=== PATIENT | male | born 1990 | race Caucasian/White ===

== ENCOUNTER 2020-10-14 03:48 | Inpatient (IN) | payer MEDICAID, SELFPAY ==
[2020-10-14 03:48] VITALS: BP 140/90; PULSE 77; RESP 18; TEMP 36.6; O2SAT 95
[2020-10-14 03:50] VITALS: BMI 28.1
[2020-10-14 06:00] VITALS: BP 140/90; PULSE 77; RESP 18; TEMP 36.6
[2020-10-14 14:00] VITALS: BP 140/90; PULSE 77; RESP 18; TEMP 36.6
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
[2020-10-14] MEDS: nicotine 2 mg Gum BUCCAL (17:11)
[2020-10-14 18:19] VITALS: BP 128/76; PULSE 84; RESP 16; TEMP 37; O2SAT 96
[2020-10-14] MEDS: paliperidone ER 6 mg Tablet PO (22:49)
[2020-10-15 05:19] VITALS: BMI 28.1
[2020-10-15 06:00] VITALS: BP 123/72; RESP 16; TEMP 36.9
[2020-10-15] MEDS: nicotine 2 mg Gum BUCCAL (07:22)
[2020-10-15] MEDS: paliperidone ER 6 mg Tablet PO (08:24)
[2020-10-15 14:05] VITALS: BP 130/73; PULSE 93; RESP 18; TEMP 37.2; O2SAT 96
--- NOTE | 2020-10-15 17:32 | P.PN_ITS ---
Subjective NPU Subjective: Interval history: Teddy presents today reporting improvement overall; Endorsing less depression anxiety and irritability. Still with focus on female patient on the other side. We also with interest in discharge. Said he is functioning well on Invega. Discussed the possibility discharge in morning. Reported significant improvement in his face and teeth. Mental Status Exam MSE Comments: This is a overweight versus obese white male with a full cruz and hospital scrubs with adequate grooming and adequate eye contact. No abnormal movements. Cooperative with exam in no acute distress. Speech was more normal rate normal volume. Mood described as better, affect congruent. Thought process organized. Thought content: Patient denied homicidal ideation or suicidal ideation, there were no delusions reported and none noted and continue to focus on the other client, he denied auditory or visual hallucinations. Attention and concentration appear intact and memory appeared limited but somewhat reliable but none were formally tested. He is alert and oriented x3. Insight and judgment are limited, impulse control is limited. Vitals/I&O/Wt Last Vital Signs Temp 98.3 F 10/15/20 21:49 Pulse 83 10/15/20 21:49 Resp 15 10/15/20 21:49 BP 121/71 10/15/20 21:49 Pulse Ox 95 10/15/20 21:49 10/15/20 10/15/20 10/16/20 14:59 22:59 06:59 Intake Total 826 / 826 708 / 1534 Balance 826 / 826 708 / 1534 Weight last 48 hrs Weight 88.904 kg A&P Additional A&P Information (1) Methamphetamine dependence: (2) History of psychosis: (3) Suicidal thoughts: (4) Depression with anxiety: Additional A&P Information This is a 30-year-old white male with a long history of mental health issues, inpatient hospitalizations active drug use and legal problems who presents with suicidal thoughts, off of his medication as a limited historian but open to restarting medication. 1. Continue current medication. 2. Continue every 15 minute checks for safety. 3. Encourage individual, group and milieu therapies. 4. Encourage sober living treatment after discharge at the highest level of care to which he is willing to commit. 5. We will get records from the [facility] to get some insight into his presentations. Involuntary Hold Information 96 Hour Hold: 96 Hour Involuntary Admission: No Attestations NPU Medical Necessity Statement*: Inpatient hospitalization is medically necessary and the clinically appropriate intervention at this time. We will monitor medications and make changes as indicated. Likely length of stay 1-3 days. Coding Level of Care Code Acute Data Base Design Analyst for Mouna Armstrong
[2020-10-15 21:49] VITALS: BP 121/71; PULSE 83; RESP 15; TEMP 36.8; O2SAT 95
[2020-10-16 06:00] VITALS: BP 124/71; PULSE 85; RESP 18; TEMP 37.1; O2SAT 97
[2020-10-16] MEDS: paliperidone ER 6 mg Tablet PO (08:16)
[2020-10-16 14:00] VITALS: BP 126/74; PULSE 92; RESP 17; TEMP 37.4; O2SAT 94
[2020-10-16] MEDS: nicotine 2 mg Gum BUCCAL (14:02)
--- NOTE | 2020-10-16 16:39 | P.DS_ITS ---
Diagnoses at Discharge Discharge Diagnosis (1) Methamphetamine dependence: Status: Acute (2) History of psychosis: Status: Acute (3) Suicidal thoughts: Status: Resolved (4) Depression with anxiety: Status: Acute Reason for Visit Reason for Visit: SI Brief History: History of Present Illness socorro angulo is a 30 year old male who presented to the outside hospital with concerns for oral pain. They treated his oral infection and he identified suicidal ideation and depression and anxiety. He was transferred to [facility] and admitted to the neuropsychiatric unit for definitive treatment of those issues. He presents today reporting that his swelling and face pain have decreased but he is continuing to have suicidal ideation. He reports that he has had at least 10 psychiatric inpatient stays last one was at the [facility] in [place]. He reports that he was started on Invega which was very effective, however he did not refill the prescription nor did he go to aftercare that have been arranged. Adherence to aftercare has seemed to be an issue at the denies significant history of follow-up. He reports having been on many medications in his life and that the Invega was very helpful. He was not able to really articulate why he was given an antipsychotic. But he did give permission for us to get his records from the [facility] to get a better understanding of what was going on however staff have noted odd behavior, he endorsed being socially awkward and asked about testing for autism there have been concerns for sexually inappropriate behavior. And concerns for limited boundary respect. He reports multiple intersections with the law but was not forthright with why he has had so many run-ins with them. He smokes cigarettes, drinks alcohol regularly, reports marijuana but not daily, endorses difficulties with methamphetamine, reports of possible rehab in the past but did not report any DUIs. We discussed the risk benefits and alternatives of starting Invega and he understood and agreed to proceed as documented in this note. He induced parasuicidal phenomena but did not report jaleesa suicide attempts. He did make a concerning comment about a patient that he recognized on the other side who also identified recognizing him saying that he wanted to be discharged at the same time as her so he gave her a cigarette and a really big kiss. Psychiatric history: As above. Substance abuse history: As above. Developmental history: There were no problems with the , or delivery, learned to walk and talk and met developmental milestones on time, and denies need for speech therapy, learning support, emotional support or special education classes. Family history: He denies mental health issues in his family, endorses some addiction issues in his family, but denied known suicide attempts or completions. Psychosocial history: He reports being 1 of 8 or 9 children. He reports a good childhood without emotional, physical or sexual abuse. He reports he graduated from high school. He endorsed being heterosexual with his longest relationship being a year or 2. He has never been , he reports having 1 child, never been in the , and endorsed a nontraditional methodist belief system. 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 He currently says he has a stable place to leave when discharged. Legal history: He reports at least 30 times in shelter longest time being 6 months. Medical history: He denied any additional medical issues outside of his significant dental caries and infections. Hospital Course Hospital Course On the unit he slowly acclimated to the individual, group and milieu therapies provided. He allowed us to restart his Invega 6 mg p.o. daily with modest improvement. He was able to contract for safety prior to discharge. At the outside hospital, patient had routine laboratory studies which were within normal limits except for few outliers. Additionally there was a general medical evaluation which was also within normal limits and revealed no new acute processes. Discharge Summary: At the time of discharge, lethality was denied and psychosis was resolving. Mood and anxiety were well managed. Patient endorsed a plan to avoid all drugs of abuse and follow-up with the aftercare recommendations of the treatment team. Patient was evaluated and deemed to be absent credible lethality, and had achieved the maximum benefit from an inpatient hospitalization, so was discharged. Involuntary Hold Information 96 Hour Hold: 96 Hour Involuntary Admission: No Mental Status Exam MSE Comments: This is a overweight versus obese white male with a full cruz and hospital scrubs with adequate grooming and adequate eye contact. No abnormal movements. Cooperative with exam in no acute distress. Speech was more normal rate normal volume. Mood described as better, affect congruent. Thought process organized. Thought content: Patient denied homicidal ideation or suicidal ideation, there were no delusions reported and none noted and continue to focus on the other client, he denied auditory or visual hallucinations. Attention and concentration appear intact and memory appeared limited but somewhat reliable but none were formally tested. He is alert and oriented x3. Insight and judgment are limited, impulse control is limited. Discharge Data Vitals: Last Vital Signs Temp 99.3 F 10/16/20 14:00 Pulse 92 10/16/20 14:00 Resp 17 10/16/20 14:00 BP 126/74 10/16/20 14:00 Pulse Ox 94 10/16/20 14:00 Discharge Plan Discharge Patient Disposition: Home Condition: Stable Prescriptions: New paliperidone 6 mg Tablet Extended Release 24hr 6 mg PO DAILY 30 Days Qty: 30 RF: 1 Continued amoxicillin-pot clavulanate 875-125 mg Tablet 1 tab PO Q12H RF: 0 Discharge Orders: Discharge Order (Routine); Ordered 10/16/20 Ordered By: Jarocho Cervantes Referrals: [facility] [Outside] (Walk-in Friday through Friday 8am to 4pm for initial assessment.) Discharge Diet: Regular Discharge Activity: Resume usual activity Patient Instructions: Paliperidone (By mouth), Opioid Safety Discharge Attestations NPU Time Spent in Discharge Care*: less than 30 min Specific Discharge Activities: Specific discharge activities: educating patient, discussing with returned case inspector/social workers/dc planners, documenting/other paperwork and evaluating patient/reviewing data Coding Level of Care Code Acute Chg FW DC note Diagnoses Methamphetamine dependence F15.20 History of psychosis Z86.59 Suicidal thoughts R45.851 Depression with anxiety F41.8
[2020-10-16 16:50] VITALS: BP 126/74; PULSE 92; RESP 17; TEMP 37.4; O2SAT 94
== END 2020-10-16 17:23 | disposition home or self-care (01) | DRG 880 ==
PROVIDERS: Admitting Provider Psychiatry & Neurology Psychiatry; Visit Provider Psychiatry & Neurology Psychiatry
DX: F41.8 Other specified anxiety disorders (principal); R45.851 Suicidal ideations; F15.280 Other stimulant dependence with stimulant-induced anxiety disorder; F17.210 Nicotine dependence, cigarettes, uncomplicated; K02.9 Dental caries, unspecified; Z86.59 Personal history of other mental and behavioral disorders; Z65.3 Problems related to other legal circumstances; Z81.4 Family history of other substance abuse and dependence

== ENCOUNTER 2021-05-13 16:31 | Inpatient (IN) | payer MEDICAID, SELFPAY ==
[2021-05-13 16:31] VITALS: BP 143/79; PULSE 89; RESP 20; O2SAT 98
[2021-05-13 16:33] VITALS: BMI 30.5
[2021-05-13] MEDS: nicotine 2 mg Gum BUCCAL (19:03)
[2021-05-13 20:13] VITALS: BP 113/64; PULSE 96; RESP 20; TEMP 36.6; O2SAT 98
[2021-05-14 06:00] VITALS: BP 107/65; PULSE 62; RESP 18; TEMP 36.4; O2SAT 98
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
--- NOTE | 2021-05-14 11:35 | NPU.GN ---
[facility] Group Topic:Chava Wise General Mood of Group: Teddy did not attend group today. He wanted to sleep.
[2021-05-14] MEDS: paliperidone ER 6 mg Tablet PO (12:10)
[2021-05-14 14:00] VITALS: BP 127/82; PULSE 90; RESP 17; TEMP 36.6; O2SAT 97
[2021-05-14] MEDS: nicotine 2 mg Gum BUCCAL ×2 (14:46→17:22)
[2021-05-14 20:11] VITALS: BP 124/73; PULSE 68; RESP 18; TEMP 36.4; O2SAT 96
[2021-05-15 06:00] VITALS: BP 116/67; PULSE 77; RESP 17; TEMP 36.4; O2SAT 96
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
[2021-05-15] MEDS: paliperidone palmitate 234 mg Syringe IM (09:21)
[2021-05-15] MEDS: paliperidone ER 6 mg Tablet PO (09:21)
[2021-05-15] MEDS: nicotine 2 mg Gum BUCCAL (10:41)
--- NOTE | 2021-05-15 11:26 | NPU.GN ---
[facility] Group Topic: [facility] The Dice General Mood of Group: Teddy did attend in group and was social with others. His hygiene was ok.
== END 2021-05-15 13:05 | disposition home or self-care (01) | DRG 885 ==
PROVIDERS: Admitting Provider Psychiatry & Neurology Psychiatry; Visit Provider Psychiatry & Neurology Psychiatry
DX: F29 Unspecified psychosis not due to a substance or known physiological condition (principal); F15.20 Other stimulant dependence, uncomplicated; R45.851 Suicidal ideations; F41.8 Other specified anxiety disorders
CPT/HCPCS: 96372; 97150; 97165